=== PATIENT | female | born 1980 | race Two or more races ===

== ENCOUNTER 2020-04-10 09:48 | Inpatient (IN) | payer MEDICAID ==
[~2020-04-10] VITALS: Ht 167.6 cm; Wt 113.0 kg
[2020-04-10 10:34] LABS: Urine Bacteria FEW /hpf (None Seen); Urine Blood 1+ /uL (Negative); Urine Mucus FEW (None Seen); Urine Specific Gravity 1.019 (1.001-1.035); Urine WBC 5 /hpf (0 - 5)
[2020-04-10 10:40] LABS: Basophils # (auto) 0.1 10 ^3/uL (0-0.2); Basophils % (auto) 0.9 % (0.0-2.0); Eosinophils # (auto) 0.2 10 ^3/uL (0-0.8); Eosinophils % (auto) 2.6 % (0.0-7.0); Hematocrit 38.2 % (36.0-46.0); Hemoglobin 13.1 g/dL (12.2-16.2); Lymphocytes # (auto) 1.4 10 ^3/uL (0.4-5.4); Lymphocytes % (auto) 14.1 % (10.0-50.0); Mean Corpuscular Hgb Conc. 34.4 g/dL (32.0-36.0); Monocytes # (auto) 0.7 10 ^3/uL (0-1.3); Monocytes % (auto) 7.2 % (0.0-12.0); Neutrophils # (auto) 7.3 10 ^3/uL (1.6-8.6); Neutrophils % (auto) 75.2 % (37.0-80.0); Platelet Count (auto) 206 10^3/uL (140-450); Red Blood Cells 4.24 10^6/uL (4.0-5.20); Red Cell Distribution Width 13.3 % (11.8-14.3); White Blood Cell 9.7 10^3/uL (4.4-10.8)
[2020-04-10 10:56] LABS: INR 0.97 (0.9-1.15)
[2020-04-10 11:11] LABS: Albumin 3.2 g/dL (3.4-5.0); Anion Gap 6 (5-15); Blood Urea Nitrogen 9 mg/dL (7-18); Calcium 8.9 mg/dL (8.5-10.1); Carbon Dioxide 24 mmol/L (21-32); Chloride 107 mmol/L (98-107); Glucose 109 mg/dL (74-106); Lipase 73 U/L (73-393); Magnesium 2.1 mg/dL (1.6-2.6); Potassium 3.8 mmol/L (3.5-5.1); Sodium 137 mmol/L (136-145)
[2020-04-10 11:17] LABS: Alanine Aminotransferase 93 U/L (13-56); Alkaline Phosphatase 106 U/L (45-117); Aspartate Aminotransferase 74 U/L (15-37); BUN/Creatinine Ratio 12.2; Bilirubin, Total 0.8 mg/dL (0.2-1.0); GFR African American 112 mL/min; GFR Non-African American 93 mL/min; Total Protein 7.7 g/dL (6.4-8.2)
[2020-04-10] MEDS ORDERED: fentaNYL CITRATE 100 MCG/2 ML VL IV ONE (12:00)
[2020-04-10] MEDS ORDERED: ONDANSETRON HCL 4 MG/2 ML VIAL IV ONE (12:00)
[2020-04-10] MEDS ORDERED: SODIUM CHLORIDE 0.9% 1,000 ML IV ONE ×2 (12:00→14:45)
[2020-04-10] MEDS ORDERED: IOHEXOL 300 MG/ML 100ML BOTTLE IJ ONE (12:14)
[2020-04-10] MEDS ORDERED: metroNIDAZOLE 500MG/100ML 100 ML IV ONE (14:45)
[2020-04-10] MEDS ORDERED: CIPROFLOXACIN 400MG/200ML 200 ML IV ONE (14:45)
[2020-04-10] MEDS ORDERED: NITROGLYCERIN 0.4 MG SL TAB SL PRN (17:00)
[2020-04-10] MEDS ORDERED: hydrALAZINE HCL 20 MG/ML VL IV PRN (17:00)
[2020-04-10] MEDS ORDERED: ONDANSETRON HCL 4 MG/2 ML VIAL IV PRN (17:00)
[2020-04-10] MEDS ORDERED: MORPHINE SULF INJ 2 MG/ML SYRINGE 1ML IV PRN (17:00)
[2020-04-10 17:28] LABS: Partial Thromboplastin Time 26.1 sec (23.0-31.2)
[2020-04-10] MEDS: amLODIPine BESYLATE 5 MG TAB PO SCH (17:29)
[2020-04-10] MEDS: MORPHINE SULF INJ 2 MG/ML SYRINGE 1ML IV PRN ×2 (17:36→22:11)
[2020-04-10 19:58] VITALS: BP 141/89
[2020-04-10 22:00] VITALS: BP 149/90
[2020-04-11] MEDS: MORPHINE SULF INJ 2 MG/ML SYRINGE 1ML IV PRN ×3 (03:56→20:39)
[2020-04-11 05:00] VITALS: BP 144/83
[2020-04-11 08:30] VITALS: BP 148/89
[2020-04-11] MEDS: amLODIPine BESYLATE 5 MG TAB PO SCH (10:13)
[2020-04-11 12:30] VITALS: BP 145/87
[2020-04-11 17:00] VITALS: BP 127/76
[2020-04-11] MEDS: ACETAMINOPHEN 500 MG TAB PO PRN (17:31)
[2020-04-11 22:00] VITALS: BP 136/85
[2020-04-12] MEDS: MORPHINE SULF INJ 2 MG/ML SYRINGE 1ML IV PRN ×3 (04:11→23:08)
[2020-04-12 05:00] VITALS: BP 144/88
[2020-04-12 07:03] LABS: Basophils # (auto) 0.1 10 ^3/uL (0-0.2); Basophils % (auto) 0.8 % (0.0-2.0); Eosinophils # (auto) 0.3 10 ^3/uL (0-0.8); Hematocrit 38.2 % (36.0-46.0); Hemoglobin 13.3 g/dL (12.2-16.2); Lymphocytes # (auto) 1.5 10 ^3/uL (0.4-5.4); Mean Corpuscular Hemoglobin 31.3 pg (28.0-32.0); Mean Corpuscular Hgb Conc. 34.9 g/dL (32.0-36.0); Mean Corpuscular Volume 89.7 fL (80.0-100.0); Monocytes # (auto) 0.6 10 ^3/uL (0-1.3); Monocytes % (auto) 6.4 % (0.0-12.0); Neutrophils # (auto) 6.3 10 ^3/uL (1.6-8.6); Neutrophils % (auto) 71.8 % (37.0-80.0); Nucleated Red Blood Cells % 0.1 %; Platelet Count (auto) 250 10^3/uL (140-450); Red Blood Cells 4.26 10^6/uL (4.0-5.20); Red Cell Distribution Width 13.4 % (11.8-14.3); White Blood Cell 8.8 10^3/uL (4.4-10.8)
[2020-04-12 07:27] LABS: Potassium 3.6 mmol/L (3.5-5.1)
[2020-04-12 07:36] LABS: BUN/Creatinine Ratio 11.8
[2020-04-12] MEDS ORDERED: levoFLOXacin 500MG 100 ML IV ONE (08:27)
[2020-04-12] MEDS ORDERED: ceFAZolin 1GM/50ML 100 ML IV ONE (09:13)
[2020-04-12] MEDS ORDERED: ROCURONIUM 10MG/ML 10ML VIAL IV ONE (09:19)
[2020-04-12] MEDS ORDERED: MIDAZOLAM HCL 1MG/1ML-2 ML VIAL ONE (09:19)
[2020-04-12] MEDS ORDERED: HYDROmorphone HCL 2 MG/ML VL ONE (09:19)
[2020-04-12] MEDS ORDERED: PROPOFOL 10 MG/ML 20 ML IV ONE (09:20)
[2020-04-12] MEDS: amLODIPine BESYLATE 5 MG TAB PO SCH (10:00)
[2020-04-12] MEDS ORDERED: DexAMETHasone SOD PHOS 10MG/1ML VIAL INJ ONE (10:00)
[2020-04-12] MEDS ORDERED: ONDANSETRON HCL 4 MG/2 ML VIAL ONE (10:00)
[2020-04-12] MEDS ORDERED: GLYCOPYRROLATE 0.2 MG/ML 1ML VIAL ONE ×2 (10:02→10:26)
[2020-04-12] MEDS ORDERED: NEOSTIGMINE 1 MG/ML INJ (10mg/10ML VIAL) ONE (10:02)
[2020-04-12] MEDS: BUPIVACAINE 0.5% MPF INJ 30ML SDV IJ ONE ×2 (10:20→10:30)
[2020-04-12] MEDS ORDERED: ONDANSETRON HCL 4 MG/2 ML VIAL IV PRN (11:00)
[2020-04-12] MEDS ORDERED: HYDROmorphone HCL 2 MG/ML VL IV PRN ×2 (11:00)
[2020-04-12] MEDS ORDERED: METOCLOPRAMIDE HCL 5MG/ml INJ 2ml VIAL IV PRN (11:00)
[2020-04-12 13:00] VITALS: BP 132/87
[2020-04-12 16:40] VITALS: BP 142/83
[2020-04-12 22:11] VITALS: BP 140/82
[2020-04-13] VITALS (7 sets, daily range): BP systolic 123–139; BP diastolic 72–86
[2020-04-13] MEDS: MORPHINE SULF INJ 2 MG/ML SYRINGE 1ML IV PRN ×3 (03:37→18:45)
[2020-04-13 06:44] LABS: Basophils # (auto) 0.1 10 ^3/uL (0-0.2); Basophils % (auto) 0.5 % (0.0-2.0); Eosinophils # (auto) 0.1 10 ^3/uL (0-0.8); Eosinophils % (auto) 1.3 % (0.0-7.0); Hematocrit 35.1 % (36.0-46.0); Hemoglobin 12.1 g/dL (12.2-16.2); Lymphocytes # (auto) 1.6 10 ^3/uL (0.4-5.4); Lymphocytes % (auto) 14.3 % (10.0-50.0); Mean Corpuscular Hgb Conc. 34.5 g/dL (32.0-36.0); Mean Corpuscular Volume 89.8 fL (80.0-100.0); Monocytes # (auto) 0.8 10 ^3/uL (0-1.3); Monocytes % (auto) 7.4 % (0.0-12.0); Neutrophils # (auto) 8.6 10 ^3/uL (1.6-8.6); Neutrophils % (auto) 76.5 % (37.0-80.0); Nucleated Red Blood Cells % 0.1 %; Platelet Count (auto) 241 10^3/uL (140-450); Red Blood Cells 3.91 10^6/uL (4.0-5.20); Red Cell Distribution Width 13.2 % (11.8-14.3); White Blood Cell 11.2 10^3/uL (4.4-10.8)
[2020-04-13 06:56] LABS: Potassium 4.2 mmol/L (3.5-5.1)
[2020-04-13 07:05] LABS: Bilirubin, Total 0.4 mg/dL (0.2-1.0); Calcium 8.7 mg/dL (8.5-10.1)
[2020-04-13] MEDS: amLODIPine BESYLATE 5 MG TAB PO SCH (09:40)
[2020-04-13] MEDS: ACETAMINOPHEN 500 MG TAB PO PRN (13:45)
[2020-04-14] MEDS: ACETAMINOPHEN 500 MG TAB PO PRN (02:34)
[2020-04-14 05:00] VITALS: BP 128/85
[2020-04-14 07:22] LABS: Basophils # (auto) 0 10 ^3/uL (0-0.2); Basophils % (auto) 0.6 % (0.0-2.0); Eosinophils # (auto) 0.2 10 ^3/uL (0-0.8); Eosinophils % (auto) 2.2 % (0.0-7.0); Hematocrit 35.4 % (36.0-46.0); Hemoglobin 12.1 g/dL (12.2-16.2); Lymphocytes # (auto) 1.6 10 ^3/uL (0.4-5.4); Lymphocytes % (auto) 20.4 % (10.0-50.0); Mean Corpuscular Hemoglobin 30.5 pg (28.0-32.0); Mean Corpuscular Hgb Conc. 34.2 g/dL (32.0-36.0); Mean Corpuscular Volume 89.3 fL (80.0-100.0); Monocytes # (auto) 0.5 10 ^3/uL (0-1.3); Monocytes % (auto) 6.7 % (0.0-12.0); Neutrophils # (auto) 5.5 10 ^3/uL (1.6-8.6); Neutrophils % (auto) 70.1 % (37.0-80.0); Platelet Count (auto) 249 10^3/uL (140-450); Red Blood Cells 3.97 10^6/uL (4.0-5.20); Red Cell Distribution Width 13.3 % (11.8-14.3); White Blood Cell 7.8 10^3/uL (4.4-10.8)
[2020-04-14 07:31] LABS: Calcium 8.5 mg/dL (8.5-10.1); Potassium 3.7 mmol/L (3.5-5.1)
[2020-04-14 07:33] LABS: BUN/Creatinine Ratio 7.8
[2020-04-14 08:00] VITALS: BP 126/74
[2020-04-14 09:00] VITALS: BP 126/74
[2020-04-14] MEDS: MORPHINE SULF INJ 2 MG/ML SYRINGE 1ML IV PRN (09:33)
[2020-04-14] MEDS: amLODIPine BESYLATE 5 MG TAB PO SCH (09:33)
[2020-04-14 13:00] VITALS: BP 129/77
[2020-04-14 16:50] VITALS: BP 131/80
[2020-04-14] MEDS ORDERED: AML5T PO (17:13)
[2020-04-14] MEDS ORDERED: PERCOT PO (17:13)
[2020-04-14] MEDS ORDERED: DOCU-94 PO (17:13)
[2020-04-14] MEDS ORDERED: ACET-1079 PO (17:13)
[2020-04-14 17:24] VITALS: BP 131/80
== END 2020-04-14 18:19 | disposition home health service (06) | DRG 263 ==
LOC: ER 09:48 → TELE 17:06 → TELE-EAST 19:58
PROVIDERS: ADMIT Internal Medicine; ATTEND Internal Medicine
PROC: 0FT44ZZ Resection of Gallbladder, Percutaneous Endoscopic Approach (ICD-10-PCS; principal; 2020-04-12 09:37)
DX: K80.12 Calculus of gallbladder with acute and chronic cholecystitis without obstruction (principal); E66.01 Morbid (severe) obesity due to excess calories; N39.0 Urinary tract infection, site not specified; N93.9 Abnormal uterine and vaginal bleeding, unspecified; Z88.0 Allergy status to penicillin; I10 Essential (primary) hypertension; Z68.41 Body mass index [BMI] 40.0-44.9, adult; Z20.822 Contact with and (suspected) exposure to COVID-19
CPT/HCPCS: 36415; 71045; 74018; 74177; 80048; 80053; 81001; 81025; 82247; 83605; 83690; 83735; 84484; 85025; 85610; 85730; 86850; 86900; 86901; 87040; 87081; 87426; 93005; 93306; 96361; 96365; 96368; 96375; G0378; J0690; J1100; J1956; J2250; J2405; J2704; J3490